=== PATIENT | female | born 1990 | race Asian ===

== ENCOUNTER 2023-10-31 00:23 | Emergency (ER) | payer BC ==
[2023-10-31 00:40] VITALS: BMI 18.8
[2023-10-31 01:04] LABS: PH,URINE 5.5 (5.0-8.0); URINE APPEARANCE CLEAR; URINE BILIRUBIN NEGATIVE (NEGATIVE); URINE COLOR DK YELLOW; URINE GLUCOSE (UA) NEGATIVE (NEGATIVE); URINE KETONE NEGATIVE (NEGATIVE); URINE LEUK ESTERASE NEGATIVE (NEGATIVE); URINE NITRITE NEGATIVE (NEGATIVE); URINE PROTEIN NEGATIVE (NEGATIVE); URINE UROBILINOGEN 0.2 mg/dL (0.2-1.0)
[2023-10-31 01:07] LABS: HCG,QUALITATIVE URINE Negative
[2023-10-31] MEDS ORDERED: ACETAMINOPHEN 500 MG TABLET (FP) PO ONE (02:35)
[2023-10-31 03:16] LABS: BASO % 1.1 % (0-2.0); EOS % 2.1 % (0-4.5); HEMATOCRIT 35.2 % (32.4-45.2); HEMOGLOBIN 12.1 GM/dL (10.7-15.3); LYMPH % 32.1 % (8-40); MCH 30.2 pg (25.7-33.7); MCHC 34.3 g/dl (32.0-36.0); MEAN CELL VOLUME 88.2 fl (80-96); MEAN PLT VOLUME 7.5 fl (7.5-11.1); MONO % 9.6 % (3.8-10.2); NEUT % 55.1 % (42.8-82.8); PLATELET COUNT 267 10^3/uL (134-434); RBC 3.99 M/mm3 (3.60-5.2); RDW 12.6 % (11.6-15.6); WHITE BLOOD COUNT 6.4 K/mm3 (4.0-10.0)
[2023-10-31 03:24] LABS: INR 0.94 (0.83-1.09); PROTHROMBIN TIME (PATIENT) 10.9 SEC (9.7-13.0)
[2023-10-31 03:28] LABS: ACTIVATED PTT 34.2 SECONDS (25.2-36.5)
[2023-10-31 03:51] LABS: POTASSIUM 4.2 mmol/L (3.5-5.1)
[2023-10-31 03:54] LABS: ALBUMIN 4.2 g/dl (3.4-5.0); CALCIUM 9.4 mg/dL (8.5-10.1)
[2023-10-31 03:55] LABS: BLOOD UREA NITROGEN 13.2 mg/dL (7-18)
[2023-10-31 03:57] LABS: CREATININE 0.7 mg/dL (0.55-1.3)
[2023-10-31 03:58] LABS: BILIRUBIN,TOTAL 0.3 mg/dL (0.2-1); TOT PROT 7.7 g/dl (6.4-8.2)
[2023-10-31 05:47] VITALS: BP 122/79; PULSE 73; RESP 16; TEMP 98.4
== END 2023-10-31 06:51 | disposition home or self-care (01) ==
LOC: JER 00:23
DX: R39.11 Hesitancy of micturition (principal); R10.11 Right upper quadrant pain; R11.0 Nausea; R19.7 Diarrhea, unspecified; N83.201 Unspecified ovarian cyst, right side
CPT/HCPCS: 36415; 71046-TC-FY; 74177-TC; 76700-TC; 76830-TC; 80053; 81003; 83690; 84484; 84703; 85025; 85379; 85610; 85730; 93005; 93010; 99285-25; Q9967

== ENCOUNTER 2024-11-27 14:45 | Day surgery (SDC) | payer BC ==
[2024-11-27] MEDS: FERRIC CARBOXYMALTOSE 750 MG in SODIUM CHLORIDE 250 ML IVPB ONE (15:22)
[2024-11-27 16:41] VITALS: BP 116/56; PULSE 98; RESP 16; TEMP 98
== END 2024-11-27 16:47 | disposition home or self-care (01) ==
LOC: JONCNONCHE 14:45
PROVIDERS: ATTEND Internal Medicine Hematology & Oncology
PROC: 3E033GC Introduction of Other Therapeutic Substance into Peripheral Vein, Percutaneous Approach (ICD-10-PCS; principal; 2024-11-27)
DX: D50.9 Iron deficiency anemia, unspecified (principal)
CPT/HCPCS: 96365; J1439